=== PATIENT | male | born 1965 | race African-American/Black ===

== ENCOUNTER 2021-10-29 15:39 | Emergency (ER) | payer OTHER ==
[~2021-10-29] VITALS: Ht 180.3 cm; Wt 105.0 kg
[2021-10-29] MEDS ORDERED: SODIUM CHLORIDE 0.9% 1,000 ML IV ONE (16:15)
[2021-10-29 16:26] LABS: BASOPHILS % 0.8 % (0.0-2.0); EOSINOPHILS % 1.6 % (0.0-5.0); HEMOGLOBIN. 14.2 g/dL (14.0-18.0); LYMPHOCYTES % 37.8 % (20.0-50.0); MEAN CORPUSCULAR HEMOGLOBIN 30.3 pg (28.0-32.0); MEAN CORPUSCULAR VOLUME 89.9 fL (80.0-94.0); MEAN PLATELET VOLUME 7.7 fl (7.4-10.4); MONOCYTES % 8.7 % (2.0-8.0); NEUTROPHILS % 51.1 % (40.0-76.0); PLATELET 183 x1000/uL (130-400); RED BLOOD CELL COUNT 4.67 mill/uL (4.7-6.1); RED CELL DISTRIBUTION WIDTH 12.7 % (11.6-14.6)
[2021-10-29 16:43] LABS: CHLORIDE 108 mEq/L (98-107)
[2021-10-29 18:16] LABS: *AMPHETAMINES SCREEN URINE NEGATIVE (NEGATIVE); *BARBITURATES SCREEN URINE NEGATIVE (NEGATIVE); *BENZODIAZEPINES SCREEN URINE NEGATIVE (NEGATIVE)
[2021-10-29 18:17] LABS: *COCAINE SCREEN URINE NEGATIVE (NEGATIVE); CANNABINOID URINE SCREEN NEGATIVE (NEGATIVE); METHADONE URINE SCREEN NEGATIVE (NEGATIVE); OPIATES URINE SCREEN NEGATIVE (NEGATIVE); PHENCYCLIDINE URINE SCREEN NEGATIVE (NEGATIVE)
[2021-10-29 19:45] VITALS: BP 150/89
== END 2021-10-29 19:45 | disposition home or self-care (01) ==
LOC: ER 15:39
DX: R07.89 Other chest pain (principal); E11.65 Type 2 diabetes mellitus with hyperglycemia; Z88.0 Allergy status to penicillin
CPT/HCPCS: 36415; 71045; 80053; 80305; 83690; 83880; 84443; 84484; 85025; 85379; 93005; 99285; J7030

== ENCOUNTER 2023-07-17 20:11 | Inpatient (IN) | payer OTHER ==
[~2023-07-17] VITALS: Ht 182.9 cm; Wt 83.9 kg
[2023-07-17] MEDS: BLOOD SUGAR DIAGNOSTIC STRIP TEST SCH ×3 (00:59→22:54)
[2023-07-17] MEDS ORDERED: POTASSIUM CHLORIDE INJ 40 MEQ in SODIUM CHLORIDE 0.9% 230 ML IV PRN (20:30)
[2023-07-17] MEDS ORDERED: DEXTROSE 50% WATER 50ML SYRINGE IV PRN (20:30)
[2023-07-17] MEDS ORDERED: KCL 20MEQ/100ML PREMIX 100 ML IV PRN (20:30)
[2023-07-17] MEDS ORDERED: DEXT 5%/0.9% NACL 1,000 ML IV SCH (20:30)
[2023-07-17 22:48] LABS: BG BASE EXCESS -21.4 mmol/L (-2.0-2.0); BG CARBOXYHEMOGLOBIN 0.4 % (0.5-1.5); BG DEOXYHEMOGLOBIN 2.4 % (0.0-5.0); BG FRACTION INSPIRED OXYGEN 21; BG HCO3 ACT 4.9 mmol/L (22.0-26.0); BG METHEMOGLOBIN 0.5 % (0.0-1.5); BG OXYGEN SATURATION 97.6 % (92.0-98.5); BG OXYHEMOGLOBIN 96.7 % (94.0-97.0); BG PCO2 14.5 mmHg (35.0-45.0); BG PH 7.151 (7.350-7.450); BG PO2 107.1 mmHg (75.0-100.0); BG SAMPLE SITE RIGHT RADIAL; BG TOTAL HEMOGLOBIN 15.3 g/dL (12.0-18.0); BG VENT MODE ROOM AIR
[2023-07-17] MEDS: SODIUM CHLORIDE 0.9% 1,000 ML IV SCH (22:54)
[2023-07-18] VITALS (45 sets, daily range): BP systolic 110–182; BP diastolic 73–100; PULSE 88–119; RESP 11–46; TEMP 98.5–98.6
[2023-07-18 01:02] LABS: HEMOGLOBIN. 13.6 g/dL (14.0-18.0); MEAN CORPUSCULAR HEMOGLOBIN 31.2 pg (28.0-32.0); MEAN CORPUSCULAR HGB CONC 30.3 g/dL (31.0-37.0); MEAN CORPUSCULAR VOLUME 102.9 fL (80.0-94.0); MEAN PLATELET VOLUME 8.4 fl (7.4-10.4); PLATELET 239 x1000/uL (130-400); RED BLOOD CELL COUNT 4.37 mill/uL (4.7-6.1)
[2023-07-18 01:09] LABS: DIFFERENTIAL COMMENT 1
[2023-07-18 01:16] LABS: CALCIUM 9.4 mg/dL (8.7-10.4); CHLORIDE 97 mEq/L (98-107); PHOSPHORUS 5.5 mg/dL (2.5-4.9); SODIUM 133 mEq/L (136-145); UREA NITROGEN BLOOD 22 mg/dL (9-23)
[2023-07-18 01:38] LABS: LACTIC ACID 3.1 mmol/L (0.4-2.0)
[2023-07-18 01:39] LABS: POTASSIUM 6.4 mEq/L (3.5-5.1)
[2023-07-18 01:40] LABS: GLUCOSE 532 mg/dL (70-105)
[2023-07-18 01:41] LABS: CARBON DIOXIDE < 10 mEq/L (21-32)
[2023-07-18] MEDS: SODIUM CHLORIDE 0.9% 1,000 ML IV SCH ×4 (01:52→21:45)
[2023-07-18] MEDS ORDERED: INSULIN REGULAR (HUMULIN R) 300UNITS/3ML VIAL IV ONE (02:45)
[2023-07-18] MEDS ORDERED: INSULIN REGULAR (DRIP) 100 UNITS in SODIUM CHLORIDE 0.9% 99 ML IV SCH ×2 (03:00→05:15)
[2023-07-18] MEDS ORDERED: SODIUM CHLORIDE 0.9% 1,000 ML IV ONE (03:30)
[2023-07-18] MEDS ORDERED: INSULIN REGULAR 100U/100ML PMX 100 ML IV SCH (04:41)
[2023-07-18 05:05] LABS: CLARITY URINE CLEAR (CLEAR); COLOR URINE YELLOW (YELLOW); GLUCOSE URINE 3+ (NEGATIVE); KETONES URINE 4+ (NEGATIVE); LEUKOCYTE ESTERASE URINE NEGATIVE (NEGATIVE); NITRITE URINE NEGATIVE (NEGATIVE); OCCULT BLOOD URINE TRACE (NEGATIVE); PROTEIN URINE TRACE (NEGATIVE); SPECIFIC GRAVITY URINE 1.023 (1.005-1.030); UROBILINOGEN URINE 0.2 E.U./dL (0.2-1.0)
[2023-07-18] MEDS ORDERED: PIPERACILLIN/TAZOBACTAM 3.375 G in DEXTROSE 5% WATER 50 ML IV SCH (05:15)
[2023-07-18] MEDS ORDERED: CLONIDINE 0.1MG TABLET PO PRN (05:15)
[2023-07-18] MEDS ORDERED: IPRATROPIUM/ALBUTEROL 0.5-3(2.5)MG/3ML NEB HHN PRN (05:15)
[2023-07-18] MEDS ORDERED: DEXTROSE 50% WATER 50ML SYRINGE IV PRN ×3 (05:15→06:00)
[2023-07-18] MEDS ORDERED: ACETAMINOPHEN 325MG TABLET PO PRN ×2 (05:15)
[2023-07-18] MEDS ORDERED: DOCUSATE SODIUM 100MG CAPSULE PO PRN (05:15)
[2023-07-18] MEDS ORDERED: HYDROCODONE/ACETAMINOPHEN 5/325MG TABLET PO PRN (05:15)
[2023-07-18] MEDS ORDERED: MAGNESIUM/ALUMINUM HYDROXIDE/SIMETHICONE 30ML UDC PO PRN (05:15)
[2023-07-18] MEDS ORDERED: ONDANSETRON HCL 4MG/2ML INJ IV PRN (05:15)
[2023-07-18] MEDS ORDERED: GUAIFENESIN 200MG/10ML SUGAR FREE UDC PO PRN (05:15)
[2023-07-18] MEDS ORDERED: POTASSIUM CHLORIDE INJ 40 MEQ in SODIUM CHLORIDE 0.9% 230 ML IV PRN (05:15)
[2023-07-18] MEDS ORDERED: KCL 20MEQ/100ML PREMIX 100 ML IV PRN (05:15)
[2023-07-18] MEDS ORDERED: LEVOFLOXACIN 750MG PREMIX 150 ML IV SCH (05:45)
[2023-07-18] MEDS: BLOOD SUGAR DIAGNOSTIC STRIP TEST SCH ×18 (06:01→23:15)
[2023-07-18 06:17] LABS: BG BASE EXCESS -23.4 mmol/L (-2.0-2.0); BG CARBOXYHEMOGLOBIN 0.4 % (0.5-1.5); BG DEOXYHEMOGLOBIN 2.4 % (0.0-5.0); BG FRACTION INSPIRED OXYGEN 21; BG HCO3 ACT 3.9 mmol/L (22.0-26.0); BG METHEMOGLOBIN 0.2 % (0.0-1.5); BG OXYGEN SATURATION 97.6 % (92.0-98.5); BG PCO2 12.8 mmHg (35.0-45.0); BG PH 7.102 (7.350-7.450); BG PO2 114.2 mmHg (75.0-100.0); BG SAMPLE SITE RIGHT RADIAL; BG TOTAL HEMOGLOBIN 14.7 g/dL (12.0-18.0); BG VENT MODE ROOM AIR
[2023-07-18] MEDS: DEXT 5%/0.9% NACL 1,000 ML IV SCH ×4 (06:17→21:15)
[2023-07-18] MEDS: INSULIN REGULAR 100U/100ML PMX 100 ML IV SCH ×2 (06:17→15:10)
[2023-07-18] MEDS ORDERED: LEVOFLOXACIN 500MG PREMIX 100 ML IV NR ×2 (06:30→22:30)
[2023-07-18 06:46] LABS: BACTERIA URINE NONE SEEN; RBC URINE 0-2 /hpf (0-2); SQUAMOUS EPITHELIAL CELL URINE RARE /lpf (RARE/1+); WBC URINE 0-2 /hpf (0-2)
[2023-07-18 08:01] LABS: PLATELET ESTIMATE NORMAL
[2023-07-18] MEDS: ENOXAPARIN 40MG/0.4ML SYR SUBCUT SCH (08:21)
[2023-07-18] MEDS: PANTOPRAZOLE SODIUM 40 MG/VIAL IV SCH (08:22)
[2023-07-18] MEDS: HYDRALAZINE 20MG/ML VIAL IV PRN (08:22)
[2023-07-18] MEDS ORDERED: SODIUM BICARBONATE 8.4% 1 MEQ/ML 50ML SYR IV NR ×3 (08:30→14:45)
[2023-07-18] MEDS ORDERED: CEFEPIME HCL 1000MG/VIAL INJ IM SCH (09:00)
[2023-07-18] MEDS ORDERED: SODIUM POLYSTYRENE SULFONATE 15 G/60 ML BOT PO NR (09:30)
[2023-07-18 10:00] LABS: CHLORIDE 105 mEq/L (98-107); CREATININE 1.7 mg/dL (0.6-1.3); POTASSIUM 5.7 mEq/L (3.5-5.1); SODIUM 138 mEq/L (136-145); UREA NITROGEN BLOOD 19 mg/dL (9-23)
[2023-07-18 10:12] LABS: BG BASE EXCESS -17.7 mmol/L (-2.0-2.0); BG CARBOXYHEMOGLOBIN 0.4 % (0.5-1.5); BG DEOXYHEMOGLOBIN 2.2 % (0.0-5.0); BG HCO3 ACT 6.2 mmol/L (22.0-26.0); BG METHEMOGLOBIN 0.3 % (0.0-1.5); BG OXYGEN SATURATION 97.8 % (92.0-98.5); BG OXYHEMOGLOBIN 97.1 % (94.0-97.0); BG PCO2 13.7 mmHg (35.0-45.0); BG PH 7.276 (7.350-7.450); BG PO2 101.7 mmHg (75.0-100.0); BG SAMPLE SITE RIGHT RADIAL; BG TOTAL HEMOGLOBIN 13.8 g/dL (12.0-18.0); BG VENT MODE ROOM AIR
[2023-07-18] MEDS ORDERED: NALOXONE HCL 0.4MG/ML VIAL IV PRN (10:30)
[2023-07-18 10:41] LABS: CARBON DIOXIDE < 10 mEq/L (21-32); GLUCOSE 369 mg/dL (70-105)
[2023-07-18 11:12] LABS: HEPATITIS B SURFACE ANTIGEN NEGATIVE (Negative); HEPATITIS C AB NON REACTIVE (Neg) (Negative)
[2023-07-18 11:44] LABS: PHOSPHORUS 3.2 mg/dL (2.5-4.9)
[2023-07-18 13:17] LABS: *AMPHETAMINES SCREEN URINE NEGATIVE (NEGATIVE); *BARBITURATES SCREEN URINE NEGATIVE (NEGATIVE); *BENZODIAZEPINES SCREEN URINE NEGATIVE (NEGATIVE); *COCAINE SCREEN URINE NEGATIVE (NEGATIVE); CANNABINOID URINE SCREEN NEGATIVE (NEGATIVE); ECSTASY MDMA SCREEN URINE NEGATIVE (NEGATIVE); METHADONE URINE SCREEN Neg (NEGATIVE); OPIATES URINE SCREEN NEGATIVE (NEGATIVE); PHENCYCLIDINE URINE SCREEN NEGATIVE (NEGATIVE)
[2023-07-18 13:22] LABS: BG BASE EXCESS -9.2 mmol/L (-2.0-2.0); BG CARBOXYHEMOGLOBIN 0.4 % (0.5-1.5); BG DEOXYHEMOGLOBIN 2.9 % (0.0-5.0); BG HCO3 ACT 13.5 mmol/L (22.0-26.0); BG METHEMOGLOBIN 0.3 % (0.0-1.5); BG OXYGEN SATURATION 97.1 % (92.0-98.5); BG OXYHEMOGLOBIN 96.4 % (94.0-97.0); BG PCO2 22.8 mmHg (35.0-45.0); BG PH 7.391 (7.350-7.450); BG PO2 84.6 mmHg (75.0-100.0); BG SAMPLE SITE RIGHT RADIAL; BG TOTAL HEMOGLOBIN 14.3 g/dL (12.0-18.0); BG VENT MODE ROOM AIR
[2023-07-18 13:30] LABS: CARBON DIOXIDE 15 mEq/L (21-32); CHLORIDE 108 mEq/L (98-107); PHOSPHORUS 1.6 mg/dL (2.5-4.9); POTASSIUM 4.6 mEq/L (3.5-5.1); SODIUM 141 mEq/L (136-145)
[2023-07-18 16:56] LABS: BG BASE EXCESS -2.7 mmol/L (-2.0-2.0); BG CARBOXYHEMOGLOBIN 0.7 % (0.5-1.5); BG DEOXYHEMOGLOBIN 3.5 % (0.0-5.0); BG HCO3 ACT 20.2 mmol/L (22.0-26.0); BG METHEMOGLOBIN 0.4 % (0.0-1.5); BG OXYGEN SATURATION 96.5 % (92.0-98.5); BG OXYHEMOGLOBIN 95.4 % (94.0-97.0); BG PH 7.447 (7.350-7.450); BG PO2 73.7 mmHg (75.0-100.0); BG SAMPLE SITE RIGHT RADIAL; BG TOTAL HEMOGLOBIN 13.4 g/dL (12.0-18.0); BG VENT MODE ROOM AIR
[2023-07-18 17:08] LABS: BETA HYDROXYBUTYRATE 9.3 mMol/L (0.0-0.3)
[2023-07-18 22:31] LABS: CALCIUM 8.8 mg/dL (8.7-10.4); CARBON DIOXIDE 22 mEq/L (21-32); CHLORIDE 111 mEq/L (98-107); POTASSIUM 3.7 mEq/L (3.5-5.1); SODIUM 145 mEq/L (136-145); UREA NITROGEN BLOOD 12 mg/dL (9-23)
[2023-07-18 22:33] LABS: CARBON DIOXIDE 22 mEq/L (21-32); CHLORIDE 111 mEq/L (98-107); POTASSIUM 3.7 mEq/L (3.5-5.1); SODIUM 145 mEq/L (136-145)
[2023-07-18 22:44] LABS: GLUCOSE 202 mg/dL (70-105)
[2023-07-18 22:46] LABS: PHOSPHORUS 0.8 mg/dL (2.5-4.9)
[2023-07-18] MEDS ORDERED: POTASSIUM PHOS,M-BASIC-D-BASIC 15 MMOL in DEXT 5% WATER 245 ML IV NR ×2 (23:00→23:45)
[2023-07-18] MEDS ORDERED: MAGNESIUM 2 G PREMIX 50 ML IV NR (23:30)
[2023-07-19] VITALS (16 sets, daily range): BP systolic 127–175; BP diastolic 67–103; PULSE 72–99; RESP 12–31; TEMP 97.5–98.6; O2SAT 99
[2023-07-19] MEDS: BLOOD SUGAR DIAGNOSTIC STRIP TEST SCH ×12 (00:15→16:15)
[2023-07-19] MEDS: DEXT 5%/0.9% NACL 1,000 ML IV SCH (01:15)
[2023-07-19] MEDS: SODIUM CHLORIDE 0.9% 1,000 ML IV SCH (01:45)
[2023-07-19 06:24] LABS: BASOPHILS % 0.2 % (0.0-2.0); HEMATOCRIT. 33.7 % (42.0-52.0); HEMOGLOBIN. 11.3 g/dL (14.0-18.0); LYMPHOCYTES % 19.1 % (20.0-50.0); MEAN CORPUSCULAR HEMOGLOBIN 31.6 pg (28.0-32.0); MEAN CORPUSCULAR HGB CONC 33.4 g/dL (31.0-37.0); MEAN CORPUSCULAR VOLUME 94.8 fL (80.0-94.0); MEAN PLATELET VOLUME 7.9 fl (7.4-10.4); MONOCYTES % 9.4 % (2.0-8.0); NEUTROPHILS % 71.3 % (40.0-76.0); PLATELET 130 x1000/uL (130-400); RED BLOOD CELL COUNT 3.56 mill/uL (4.7-6.1); RED CELL DISTRIBUTION WIDTH 12.8 % (11.6-14.6); WHITE BLOOD COUNT 5.8 x1000/uL (4.5-11.0)
[2023-07-19 06:58] LABS: ALANINE AMINOTRANSFERASE 81 IU/L (10-49); ALBUMIN 3.2 g/dL (3.2-4.8); ASPARTATE AMINOTRANSFERASE 35 IU/L (<34); BILIRUBIN TOTAL 0.7 mg/dL (0.1-1.0); CALCIUM 8.1 mg/dL (8.7-10.4); CARBON DIOXIDE 23 mEq/L (21-32); CHLORIDE 113 mEq/L (98-107); CHOLESTEROL 172 mg/dL (<200); CREATININE 0.9 mg/dL (0.6-1.3); GLUCOSE 151 mg/dL (70-105); HDL CHOLESTEROL 39 mg/dL (>55); LDL CHOLESTEROL 109 mg/dL (5-100); SODIUM 144 mEq/L (136-145); THYROID STIMULATING HORMONE 0.97 uIU/mL (0.55-4.78); TRIGLYCERIDE 177 mg/dL (0-150); UREA NITROGEN BLOOD 9 mg/dL (9-23)
[2023-07-19 07:05] LABS: PROTEIN TOTAL 5.3 g/dL (6.0-8.3)
[2023-07-19] MEDS ORDERED: KCL 20MEQ/100ML PREMIX 100 ML IV PRN (07:30)
[2023-07-19] MEDS: PANTOPRAZOLE SODIUM 40 MG/VIAL IV SCH (08:02)
[2023-07-19] MEDS: ENOXAPARIN 40MG/0.4ML SYR SUBCUT SCH (08:04)
[2023-07-19] MEDS ORDERED: AMLODIPINE 10MG TABLET PO SCH (09:00)
[2023-07-19] MEDS ORDERED: DEXTROSE 50% WATER 50ML SYRINGE IV PRN (09:00)
[2023-07-19] MEDS: HYDRALAZINE 20MG/ML VIAL IV PRN (09:16)
[2023-07-19] MEDS ORDERED: INSULIN GLARGINE 100 UNITS/ML SUBCUT SCH (10:00)
[2023-07-19 10:01] LABS: PHOSPHORUS 1.1 mg/dL (2.5-4.9)
[2023-07-19 10:18] LABS: BG BASE EXCESS -4.4 mmol/L (-2.0-2.0); BG CARBOXYHEMOGLOBIN 1.1 % (0.5-1.5); BG FRACTION INSPIRED OXYGEN 21; BG HCO3 ACT 19.1 mmol/L (22.0-26.0); BG METHEMOGLOBIN 0.1 % (0.0-1.5); BG OXYHEMOGLOBIN 94.8 % (94.0-97.0); BG PCO2 30.9 mmHg (35.0-45.0); BG PO2 82.8 mmHg (75.0-100.0); BG SAMPLE SITE RIGHT RADIAL; BG TOTAL HEMOGLOBIN 12.6 g/dL (12.0-18.0); BG VENT MODE ROOM AIR
[2023-07-19] MEDS: INSULIN LISPRO 100 UNITS/ML SUBCUT SCH ×2 (11:57→16:24)
[2023-07-19] MEDS ORDERED: LEVOFLOXACIN 500MG PREMIX 100 ML IV SCH (22:00)
== END 2023-07-19 18:26 | disposition short-term general hospital (02) | DRG 637 ==
LOC: ER 20:11 → MICUSO 23:00
PROVIDERS: ADMIT Hospitalist; ATTEND Hospitalist
DX: E11.10 Type 2 diabetes mellitus with ketoacidosis without coma (principal); N17.0 Acute kidney failure with tubular necrosis; E87.1 Hypo-osmolality and hyponatremia; E11.22 Type 2 diabetes mellitus with diabetic chronic kidney disease; E87.5 Hyperkalemia; D72.829 Elevated white blood cell count, unspecified; E78.5 Hyperlipidemia, unspecified; N18.30 Chronic kidney disease, stage 3 unspecified; I12.9 Hypertensive chronic kidney disease with stage 1 through stage 4 chronic kidney disease, or unspecified chronic kidney disease; E83.39 Other disorders of phosphorus metabolism; E87.6 Hypokalemia; Z79.4 Long term (current) use of insulin; Z88.0 Allergy status to penicillin
CPT/HCPCS: 36415; 36600; 71045; 80048; 80051; 80053; 80061; 80305; 81003; 82010; 82375; 82805; 82962; 83605; 83735; 83880; 83930; 84100; 84145; 84443; 85025; 86705; 87340; 93005; 93970; 99291; C9113; J0360; J1650; J1815; J1956; J3475; J3480; J3490; J7030; J7042; J7060